=== PATIENT | female | born 1995 | race Caucasian/White ===

== ENCOUNTER 2019-08-20 19:43 | Outpatient (CLI) | payer OTHER ==
[~2019-08-20] VITALS: Ht 154.9 cm; Wt 66.4 kg
[~2019-08-20 19:43] MED LIST: LEXAPRO 5MG5 MG PO; SINGULAIR 110 MG/TAB PO
[2019-08-20] MEDS ORDERED: ZYRTEC 10MG10 MG PO (20:08)
[2019-08-20] MEDS ORDERED: PRENATAL MVI (20:09)
[2019-08-20 20:30] VITALS: BP 116/77; PULSE 95; TEMP 98.3
[2019-08-20 21:00] VITALS: BP 107/78; PULSE 92
--- NOTE | 2019-08-20 21:00 | NUR ---
1949- Patient ambulatory to LR6 with . Patient into restroom to change into gown and void. 2004- EFM and TOCO on and tracing. Patient presents with complaints of contractions since 1600, occuring every 5-10 minutes and lasting 1 minute in duration. Patient denies bleeding or spotting. Patient denies any large gushes of water and reports normal clear vaginal discharge. Patient reports good movement. Patient given 750ml of ice water to drink as she reports only have 1 glass of water today. Patient states contractions lessen with ambulation but she has not attempted any other interventions. Amniotest negative. SVE /2. Assessment completed. VSS. Plan of care discussed. Questions encouraged and answered. 2049- SVE and unchanged from previous exam, 2102- See Physician Notification. 2109- Discharge instructions and Early Labor signs explained in depth to patient. Encouraged patient to keep upcoming OB appointment. Questions answered. 2114- Patient and ambulatory off unit.
== END 2019-08-20 21:15 | disposition home or self-care (01) ==
LOC: LDRO 19:43
DX: O62.9 Abnormality of forces of labor, unspecified (principal); Z3A.38 38 weeks gestation of pregnancy

== ENCOUNTER 2019-08-22 19:35 | Inpatient (IN) | payer OTHER, MEDICAID ==
[~2019-08-22] VITALS: Ht 154.9 cm; Wt 65.9 kg
[~2019-08-22 19:35] MED LIST changes: +PRENATAL MVI; +ZYRTEC 10MG10 MG PO
[2019-08-22 20:00] VITALS: BP 125/82; PULSE 77; TEMP 98.3
--- NOTE | 2019-08-22 21:00 | NUR ---
193- Patient ambulatory to LR5 with . Patient oriented to room. Patient into restroom to void and change into gown. 1939- EFM and TOCO on and tracing. Patient states she has been having contractions since 0600 and they have gotten increasingly stronger. Patient was seen at [facility] x2 today for contractions and cervical checks. Patient denies bleeding, spotting, or leaking of fluid. SVE Tight /-2. Patient breathing and wincing through contractions. Patient given water to drink. Plan of care discussed. 2039- SVE 80/-2 and unchanged from previous SVE. 2044- See Physician Notification. 2099- LR infusing. APAP given per order. See eMAR. Patient states she "drank alot of water today, I had 2 full bottles." Educated patient on drinking 10-12 bottles of water/day for adequate hydration. Plan of care discussed and updated.
[2019-08-22 23:10] LABS: BASO % 0.2 % (0.0-2.0); EOS % 0.1 % (0-4.0); GRAN # 14.1 (1.4-6.5); GRAN % 85.9 % (42.2-75.2); HEMATOCRIT 39.1 % (37.0-47.0); LYMPH # 1.4 (1.2-3.4); LYMPH % 8.6 % (20.0-51.0); MEAN CELL VOLUME 88 fl (80.0-100.0); MEAN CORPUSCULAR HEMOGLOBIN 29 pg (27.0-31.0); MEAN CORPUSCULAR HGB CONC 33 g/dl (33.0-37.0); MEAN PLATELET VOLUME 12.1 fl (7.4-10.4); MONO # 0.8 (0.1-0.6); MONO % 4.7 % (1.7-9.3); PLATELET COUNT 252 K/mm3 (130-400); RED BLOOD COUNT 4.43 M/mm3 (4.10-5.30); REDCELL DISTRIBUTION WIDTH-CV 12.5 % (11.5-14.5)
[2019-08-23] VITALS (76 sets, daily range): BP systolic 93–150; BP diastolic 50–104; PULSE 63–118; TEMP 98–99.6
--- NOTE | 2019-08-23 02:00 | NUR ---
2205- SVE 4-/-2. 2210- See Physician Notification. 2230- EFM and TOCO off. Patient ambulating halls. 2350- EFM and TOCO on and tracing. 0005- Patient is requesting an epidural. MARISSA Riojas notified. 0035- MARISSA Riojas at bedside. Patient repositioned to sitting upright for epidural placement. 0045- See Anesthesia Record. 0130- Hubbard catheter placed. SVE /-2 with bulgy BOW.
--- NOTE | 2019-08-23 06:15 | NUR ---
Report received from Marco OSEGUERA. Patient sleeping and wedged right. 0645: Plan of care discussed. SVE- with bulgy bag and bloody show. Patient left lateral with right leg resting in stirrup. 0730: Patient right lateral with left leg resting in stiirup and pericare done. 0815: Dr. Holland at bedside assessing FHR and patients progress. 0816: SVE--1 and AROM at this time with clear fluid noted. Plan of care discussed. Patient sitting up with legs lowered. Pericare done. Continuing to change patients position. 0930: at bedside to assess patient and FHR. SVE per physician with swelling of cervix noted, especially on anterior cervix. discusses plan of starting pitocin and reevaluating at 1100. Discussed if cervix does not dilate and continues to swell then may be needed. Patient agrees to plan of care. 0934: Pitocin discussed and patient agrees. Started at 2mU per protocol. 1100: SVE- and swelling noted on cervix. updated and no new orders.
--- NOTE | 2019-08-23 12:05 | NUR ---
Dr. Holland at bedside to assess patient and FHR strip. SVE per physician /+1 with a small amount of swelling on anterior, but states good change. Orders to recheck at 1300 and start pushing when needed.
--- NOTE | 2019-08-23 13:50 | NUR ---
SVE-10/100/+1 1400: Patient begins to start pushing with contracitons. 1430: Patient continues to push with contractions. 1500: Dr. Holland called and updated. FHR baseine 150-155bpm and early/variable decelerations with contractions. 1600: Patient contiues to push with contractions and small progress noted. 1630: Dr. Holland at bedside and SVE and assessing progres No new orders at this time. 1645: Dr. Holland at bedside assessing progress. Report given to Emmie OSEGUERA.
--- NOTE | 2019-08-23 16:45 | NUR ---
Report received from Sukumar OSEGUERA. in room to assess pushing. Pt starts pushing with this RN. 1713: at bedside to assess pushing. Education on vacuum assisted delivery explained to pt and family by provider. Pt agrees. Hubbard removed and pt repositioned to footplates for delivery. 1721: Vacuum applied and pt starts pushing with vacuum applied with . 1727: Vacuum pop off X1. Vacuum reapplied by . 1730: Vacuum pop off X2. Vacuum reapplied by . 1733: Vacuum pop off X3. Vacuum reapplied by . 1739: Vacuum pop off X4. 1742: Vacuum reapplied by . 1746: Vacuum pop off X5. Pt continues pusing with provider without vacuum applied. 1753: Vacuum assisted delivery of viable male by . Pitocin stopped per protocol. to mothers chest where dried and stimulated by nursery RN. Cord clamped X2 and cut by provider. Care of assumed by Jessee nursery RN. Cord gases completed. 1759: Spontaneous delivery of intact placenta by . Pitocin resummed at 333mus/hr per protocol. Fundal message completed. Fundus firm, midline and bleeding minimal. Second degree laceration with labial and left side wall extension repaired by . Pericare provided and pads changed. Pt repositioned in bed and safety precautions explained to pt and family. Call light within reach.
[2019-08-24 01:00] VITALS: BP 101/54; PULSE 90; TEMP 97.8
[2019-08-24 05:30] VITALS: BP 104/55; PULSE 77; TEMP 98.4
[2019-08-24 07:42] LABS: HEMATOCRIT 28.5 % (37.0-47.0); HEMOGLOBIN 9.5 g/dl (12.5-16.0)
[2019-08-24 08:04] VITALS: BP 99/55; PULSE 92; TEMP 97.6
--- NOTE | 2019-08-24 11:20 | NUR ---
Initial visit attempt; Hospital Staff with patient, [employer] Clerk left card of congratulations for the of their son and information regarding the avaiability of Spiritual Care at our hospital.
[2019-08-24 13:02] VITALS: BP 105/60; PULSE 78; TEMP 98.1
[2019-08-24 17:14] VITALS: BP 106/63; PULSE 75; TEMP 98
[2019-08-24 20:55] VITALS: BP 109/64; PULSE 86; TEMP 97.8
[2019-08-25 08:00] VITALS: BP 111/68; PULSE 79; TEMP 98.2
[2019-08-25] MEDS ORDERED: FERROUS SU325 MG/TAB PO (08:44)
[2019-08-25] MEDS ORDERED: IBU600 MG PO (08:45)
[2019-08-25] MEDS ORDERED: PERCOCET 325 MG1 TA2 PO (08:45)
[2019-08-25] MEDS ORDERED: BREASTPUMP MC (08:48)
[2019-08-25 15:48] VITALS: BP 114/64; PULSE 82; TEMP 97.4
--- NOTE | 2019-08-25 20:00 | NUR ---
PT'S DISCHARGE TEACHING IS REVIEWED WITH PT AND JONN - UNDERSTANDING VOICED PT DENIES ANY CONCERNS OR QUESTIONS AT THIS TIME 2009 PT IS ESCORTED FROM THE UNIT WITH HER BABY AND BY THE PUBLIC AFFAIRS OFFICER ENCOURAGED PT TO CALL WITH ANY CONCERNS
== END 2019-08-25 20:10 | disposition home or self-care (01) | DRG 807 ==
LOC: LDRO 19:35 → LDR 22:52 → OB 22:52
PROVIDERS: Obstetrics & Gynecology; ADMIT Student in an Organized Health Care Education/Training Program
PROC: 10D07Z6 Extraction of Products of Conception, Vacuum, Via Natural or Artificial Opening (ICD-10-PCS; principal; 2019-08-23)
PROC: 0KQM0ZZ Repair Perineum Muscle, Open Approach (ICD-10-PCS; 2019-08-23)
PROC: 0UQMXZZ Repair Vulva, External Approach (ICD-10-PCS; 2019-08-23)
DX: O99.344 Other mental disorders complicating childbirth (principal); Z37.0 Single live birth; F41.9 Anxiety disorder, unspecified; Z3A.39 39 weeks gestation of pregnancy; O63.1 Prolonged second stage (of labor); O70.1 Second degree perineal laceration during delivery; F43.10 Post-traumatic stress disorder, unspecified
CPT/HCPCS: J2405; J2590; J2795; J7120

== ENCOUNTER → 2020-01-23 | Outpatient (CLI) | payer BC, MEDICAID ==
[~2020-01-23] MED LIST changes: +BREASTPUMP MC; +FERROUS SU325 MG/TAB PO; +IBU600 MG PO; +PERCOCET 325 MG1 TA2 PO
== END ==
LOC: COL.PUL 08:00
DX: J45.909 Unspecified asthma, uncomplicated (principal)

== ENCOUNTER → 2020-02-01 | Outpatient (CLI) | payer BC, MEDICAID | LOC: COL.PUL 11:00 | DX: R06.02 Shortness of breath (principal) | CPT/HCPCS: J7674 ==

== ENCOUNTER 2021-05-28 18:23 | Inpatient (IN) | payer BC, MEDICAID ==
[2021-05-28] VITALS (9 sets, daily range): BP systolic 98–118; BP diastolic 55–61; PULSE 77–97; TEMP 97.5–98.5
[~2021-05-28] VITALS: Ht 154.9 cm; Wt 61.4 kg
[2021-05-28 18:59] LABS: BASO % 0.2 % (0.0-2.0); EOS % 0.3 % (0-4.0); GRAN # 12.4 K/mm3 (1.4-6.5); GRAN % 77.9 % (42.2-75.2); HEMATOCRIT 39.4 % (37.0-47.0); HEMOGLOBIN 13.7 g/dl (12.5-16.0); LYMPH # 2.3 K/mm3 (1.2-3.4); LYMPH % 14.4 % (20.0-51.0); MEAN CELL VOLUME 86 fl (80.0-100.0); MEAN CORPUSCULAR HEMOGLOBIN 30 pg (27.0-31.0); MEAN CORPUSCULAR HGB CONC 35 g/dl (33.0-37.0); MEAN PLATELET VOLUME 10.7 fl (7.4-10.4); MONO % 6.4 % (1.7-9.3); PLATELET COUNT 355 K/mm3 (130-400); RED BLOOD COUNT 4.57 M/mm3 (4.10-5.30); REDCELL DISTRIBUTION WIDTH-CV 12.6 % (11.5-14.5)
--- NOTE | 2021-05-28 21:00 | NUR ---
25 YO AT 37.3 WKS GESTATION TO LDR3 WITH C/O CTXS THAT STARTED ABOUT 1600 TODAY AND HAVE BECOME STRONGER AND CLOSER TOGETHER, ALSO REPORTS HAVING BLOODY SHOW, DENIES LEAKING FLUID AND REPORTS GOOD ACTIVITY
--- NOTE | 2021-05-28 21:08 | NUR ---
PT FEELING URGE TO PUSH WITH CTXS 1837 18G IV STARTED BY Alvarado FLEMING RN, LR INFUSING TO GRAVITY 1842 DR VOGEL TO BEDSIDE, PT UP IN FOOT PEDALS FOR DELIVERY
--- NOTE | 2021-05-28 21:15 | NUR ---
[address] BY DR VOGEL, PT INITIATED PUSHING AFTER AROM 1849 PUSHING WITH CTXS, THIS RN AND DR TEO CHARLES REMAIN AT BEDSIDE, COACHING PT WITH PUSHING 1851 DELIVERY OF VIABLE FEMALE , SPONTANEOUS CRY PRESENT, STIMULATED BY DR VOGEL, THEN TO MOTHERS ABD, DRIED AND STIMULATED BY NURSERY RN, CORD CLAMPED BY DR VOGEL, CUT BY FOB
--- NOTE | 2021-05-28 22:13 | NUR ---
UP TO BATHROOM, VOIDS WITHOUT DIFFICULTY, STEPHANIE CARE INSTRUCTED AND PERFORMED, PADS CHANGED. TOLERATES BEING UP WELL. THEN AMBULATES TO ROOM 216 WITH
--- NOTE | 2021-05-28 23:15 | NUR ---
UP TO BATHROOM WITHOUT ASSIST, VOIDING WITHOUT DIFFICULTY. TOLERATING BEING UP WELL. REQUESTS THAT INFANT GO TO NURSERY WHILE THEY REST. DENIES FURTHER NEEDS AT THIS TIME
[2021-05-29 02:15] VITALS: BP 96/62; PULSE 69; TEMP 98.8
[2021-05-29 07:45] VITALS: BP 92/62; PULSE 72; TEMP 98.5
--- NOTE | 2021-05-29 07:55 | NUR ---
Rests in bed, alert. Tylenol 1000 mg given as ordered. Denies any other needs at this time.
[2021-05-29 12:30] VITALS: BP 88/62; PULSE 76; TEMP 98.5
[2021-05-29 16:45] VITALS: BP 109/65; PULSE 85; TEMP 97.8
--- NOTE | 2021-05-29 18:33 | NUR ---
Report recieved. Resting in bed. Updated whiteboard and reviewed POC.
[2021-05-29 19:30] VITALS: BP 90/50; PULSE 66; TEMP 97.8
[2021-05-30 08:15] VITALS: BP 96/63; PULSE 78; TEMP 98
[2021-05-30] MEDS ORDERED: IBU600 MG PO (08:20)
--- NOTE | 2021-05-30 08:30 | NUR ---
Tylenol 1000 mg given as ordered.
--- NOTE | 2021-05-30 13:30 | NUR ---
Discharge instructions given, verbalizes understanding.
== END 2021-05-30 13:30 | disposition home or self-care (01) | DRG 807 ==
LOC: LDRO 18:23 → LDR 18:50 → OB 18:50 → LDR 19:10 → OB 21:30
PROVIDERS: Student in an Organized Health Care Education/Training Program; ADMIT Obstetrics & Gynecology
PROC: 10E0XZZ Delivery of Products of Conception, External Approach (ICD-10-PCS; principal; 2021-05-28)
PROC: 10907ZC Drainage of Amniotic Fluid, Therapeutic from Products of Conception, Via Natural or Artificial Opening (ICD-10-PCS; 2021-05-28)
PROC: 0HQ9XZZ Repair Perineum Skin, External Approach (ICD-10-PCS; 2021-05-28)
DX: O36.5930 Maternal care for other known or suspected poor fetal growth, third trimester, not applicable or unspecified (principal); Z37.0 Single live birth; O99.344 Other mental disorders complicating childbirth; F41.9 Anxiety disorder, unspecified; O69.9XX0 Labor and delivery complicated by cord complication, unspecified, not applicable or unspecified; Z3A.37 37 weeks gestation of pregnancy; O70.0 First degree perineal laceration during delivery
CPT/HCPCS: J2590; J7120